=== PATIENT | male | born 1990 | race Asian ===

== ENCOUNTER 2019-04-17 10:46 | Emergency (ER) | payer SELFPAY ==
[~2019-04-17] VITALS: Ht 182.9 cm; Wt 83.9 kg
[2019-04-17 11:06] VITALS: BP 132/92; Ht 182.9 cm; Wt 83.9 kg
== END 2019-04-17 13:11 | disposition home or self-care (01) ==
LOC: ED 10:46
DX: R05 Cough (principal); R50.9 Fever, unspecified; R07.89 Other chest pain